=== PATIENT | male | born 1985 | race Caucasian/White ===

== ENCOUNTER 2021-08-09 19:53 | Emergency (ER) | payer OTHER, BC ==
[~2021-08-09] VITALS: Ht 190.5 cm; Wt 137.2 kg
[2021-08-09 19:55] VITALS: BP 163/73
--- NOTE | 2021-08-09 20:17 | PHYS DOC ---
Past Medical History Past Surgical History: Appendectomy General Adult EDM: Chief Complaint: MECHANICAL FALL HPI: HPI: Patient is a 36 year old male presents for evaluation of right knee injury. Patient states fell into a manhole with his right leg his left knee hit the pavement. Patient has pain in his left knee and significant swelling along the medial aspect of his right knee. Patient has full range of motion of the right knee with discomfort. Right lower extremity is neurovascularly intact. Review of Systems: Review of Systems: Review of systems: Constitutional symptoms- No fever, no chills. Eyes- No Discharge, No Visual Loss Respiratory symptoms- No shortness of breath, No wheezing, No Dyspnea on Exertion Cardiovascular Systems; No chest pain, No Palpitations, No syncope Gastrointestinal symptoms: NO abdominal pain, no nausea, no vomiting or diarrhea. Genitourinary symptoms: No dysuria. Musculoskeletal symptoms: No back pain positive extremity pain. NEUROLOGICAL Symptoms: No headache, no generalized weakness; No focal Weakness Skin: No rash. Heart Score: C/O Chest Pain: N/A Risk Factors: Risk Factors: DM, Current or recent (<one month) smoker, HTN, HLP, family histo ry of CAD, obesity. Risk Scores: Score 0 - 3: 2.5% MACE over next 6 weeks - Discharge Home Score 4 - 6: 20.3% MACE over next 6 weeks - Admit for Clinical Observation Score 7 - 10: 72.7% MACE over next 6 weeks - Early Invasive Strategies Physical Exam: PE: General: alert, no acute distress. Skin: warm, dry and intact, no erythema, no rash. HENT: bilateral external ears normal, oropharynx moist, nose normal. Head:: Normocephalic, atraumatic. Neck: Trachea midline. Eyes: EOMI, Normal conjunctiva, No drainage CARDIOVASCULAR: Regular rate and rhythm RESPIRATORY: No respiratory distress Back: Full range of motion. MUSCULOSKELETAL: Full range of motion of bilateral upper and lower extremities. Swelling medial aspect of right knee full range of motion with pain no deformities GASTROINTESTINAL: Abdomen soft without rebound or guarding. NEUROLOGICAL: Alert and noted to person, place and time. No neurological deficits observed right lower extremity neurovascularly intact Psychiatric: Cooperative. Normal judgment Current Patient Data: Vital Signs: Vital Signs Date Time Temp Pulse Resp B/P (MAP) Pulse Ox O2 Delivery O2 Flow Rate FiO2 11/23/21 19:55 99.1 95 18 163/73 (103) 98 Room Air 99.1 EKG: EKG: [] Radiology/Procedures: Radiology/Procedures: [] Impression: X-ray wet read no acute fractures or dislocation Course & Med Decision Making: Course & Med Decision Making Pertinent Labs and Imaging studies reviewed. (See chart for details) [] Work-up consisted of radiologic imaging. Patient declined pain medication. Right lower extremity was placed in a knee immobilizer. He was prescribed Ultram and naproxen. Patient was referred to orthopedics. Marcos Disclaimer: Marcos Disclaimer: This electronic medical record was generated, in whole or in part, using a voice recognition dictation system. Departure Departure Impression: Primary Impression: Knee contusion Disposition: HOME / SELF CARE / HOMELESS Condition: STABLE Referrals: HENRIETTA KENNEDY DO Patient Instructions: Contusion, Knee Pain Scripts Naproxen (NAPROSYN) 500 Mg Tablet 500 MG PO BID, #30 TAB Prov: CHIP DOLAN DO 08/09/21 Tramadol Hcl (ULTRAM) 50 Mg Tablet 1 TAB PO PRN Q6HRS PRN for pain MDD 4 Tablet(s) for 7 Days, #28 TAB 0 Refills Prov: CHIP DOLAN DO 08/09/21 CHIP DOLAN DO Aug 09, 2021 20:17
[2021-08-09] MEDS ORDERED: NAPR-683 PO (22:05)
[2021-08-09] MEDS ORDERED: TRAM-48 PO (22:05)
--- NOTE | 2021-08-09 22:44 | RAD ---
EXAMINATION: XR KNEE 3 VIEWS_RT CLINICAL HISTORY: Right knee pain following injury TECHNIQUE: XR KNEE 3 VIEWS_RT COMPARISON: None FINDINGS/ IMPRESSION: Joint spaces and alignment maintained. No acute fracture. No joint effusion. Electronically signed by: Donnell Schwartz DO (08/09/2021 10:42 PM) TAIWO
== END 2021-08-09 22:40 | disposition home or self-care (01) ==
LOC: ER 19:53
DX: S80.01XA Contusion of right knee, initial encounter (principal); W18.39XA Other fall on same level, initial encounter; Y93.89 Activity, other specified; Y92.89 Other specified places as the place of occurrence of the external cause; Y99.8 Other external cause status
CPT/HCPCS: 29505; 73562; 99283